=== PATIENT | male | born 1995 | race Caucasian/White ===

== ENCOUNTER 2018-05-27 17:25 | Outpatient (REF) | payer MEDICAID, SELFPAY ==
[2018-05-29 13:07] LABS: Chlamydia Result Negative; GC Result Negative; Specimen Description URINE
== END 2018-05-27 17:45 ==
LOC: NCHCN 17:25
PROVIDERS: Nurse Practitioner Family; PCP Specialist/Technologist Athletic Trainer; Visit Provider Nurse Practitioner Family
DX: R19.7 Diarrhea, unspecified (principal); Z11.3 Encounter for screening for infections with a predominantly sexual mode of transmission; Z83.79 Family history of other diseases of the digestive system; Z00.00 Encounter for general adult medical examination without abnormal findings
CPT/HCPCS: 80053; 86803; 87491; 87591; 85025

== ENCOUNTER 2018-06-22 14:44 | Emergency (ER) | payer MEDICAID, SELFPAY ==
[2018-06-22 15:02] VITALS: BP 123/67; PULSE 79; RESP 18; TEMP 37.7; O2SAT 100
[2018-06-22] MEDS: Dexamethasone 4 MG TAB 12 MG PO (15:25)
[2018-06-22 15:26] VITALS: TEMP 37.7
[2018-06-22] MEDS: Ketorolac 30 MG/ML VIAL IM (15:26)
--- NOTE | 2018-06-23 15:00 | ED.GENADUL_ITS ---
Discharge Plan Disposition Patient Disposition: HOME Condition: Good Discharge Details Chief Complaint: Sorethroat Clinical Impression: Strep throat Primary Care Provider: June Painting ED Provider: Donny Galdamez Home Meds and New Rx's Prescriptions: New amoxicillin 500 mg capsule 500 mg PO BID Qty: 20 RF: 0 Discharge Instructions Instructions: Pharyngitis (ED) Additional Instructions: Please take medications as directed. If you notice any worsening of your symptoms, or any new symptoms such as vomiting, diarrhea, fever, chills, shortness of breath, chest pain, numbness, weakness, or fainting , please return immediately to the emergency department for reevaluation. Please follow up with your primary care provider as soon as possible for reassessment and reevaluatio n. As always, it was a pleasure participating in your medical care today. Referrals: June Painting [Primary Care Provider] - Discharge Data Discharge Date/Time-TO BE ENTERED AT DEPARTURE: 06/22/18 15:55 Medical Decision Making This is a pleasant 23-year-old male who presents with signs and symptoms consistent clinically with strep throat. Strep test is positive. He shows no signs or symptoms consistent with bacterial tracheitis, meningitis, sepsis or other severe infection. No evidence of peritonsillar abscess. With reassuring vital signs patient will be prescribed amoxicillin discharged home with close follow-up. I have extensively reviewed the treatment plan and discharge instructions with the patient. I have addressed all patient concerns at this time. The patient was made aware of what symptoms to monitor for that would warrant a return to the emergency department. Discussed the plan with the patient, they demonstrate verbal understanding and agreement with our assessment and plan at this time. HPI General Date/Time Provider Initiated Documentation: 06/22/18 15:13 . HPI Narrative: This is a 23-year-old male with no past medical history who presents today for evaluation of sore throat for the last 1-2 days with occasional chills. He is able to eat and drink well. He denies any headache or neck pain. He denies any cough. He does admit to other sick contacts with similar symptoms. He denies any nausea vomiting or diarrhea. He is not taking any medications to improve his symptoms. He denies any aggravating or relieving factors. He has no other complaints or modifying factors at this time. Related Data Home Medications Medication Instructions Recorded Confirmed amoxicillin 500 mg PO BID #20 cap 06/22/18 Previous Rx's Medication Instructions Recorded amoxicillin 500 mg PO BID #20 cap 06/22/18 Allergies Allergy/AdvReac Type Severity Reaction Status Date / Time No Known Allergies Allergy Unverified 06/22/18 15:07 General Stated Complaint: Sorethroat SUDHAKAR: 3 Review of Systems Review of Systems All systems reviewed & are unremarkable except as noted in HPI and below PFSH Social History Smoking and Tabacco status: Current every day Exam Narrative Exam Narrative: 1.Const: Well-nourished, Well-developed, appearing stated age 2.Eyes: PERRL, no conjunctival injection, and symmetrical lids. 3.ENT: Atraumatic external nose and ears. Moist MM. Neck: Symmetric, trachea midline, No thyromegaly. Notable erythema in the posterior oropharynx. No tonsillar exudates, no tonsillar enlargement. Patient demonstrates good movement of cervical neck. There is no nuchal rigidity, no nuchal tenderness. Patient is able to flex the neck without any difficulty or significant pain. Negative Kernig's and Brudzinski sign. 4.CVS: +S1/S2, No murmurs or gallops. Peripheral pulses 2+ and equal in all extremities. Brisk capillary refill in all extremities. 5.RESP: Unlabored respiratory effort. Clear to auscultation bilaterally. No wheezes rales or rhonchi 6.GI: Soft, Nontender/Nondistended, No hepatosplenomegaly. No guarding or rebound. 7.MSK: Normocephalic/Atraumatic, Extremities w/o deformity or ttp No cyanosis or clubbing, Normal movement of all extremities 8.Skin: Warm, Dry. No rashes or lesions. 9.Neuro: program support specialist II-XII grossly intact. Sensation grossly intact, no focal n eurologic deficits. 10.Psych: (AAO) x3. Appropriate mood and affect Course Vital Signs Temperature 37.7 C H 06/22/18 15:02 Pulse 79 06/22/18 15:02 Respiratory Rate 18 06/22/18 15:02 Blood Pressure 123/67 06/22/18 15:02 Pulse Oximetry 100 06/22/18 15:02 Temperature 37.7 C H 06/22/18 15:26 Temperature Source Temporal Artery Scan 06/22/18 15:02 Pulse 79 06/22/18 15:02 Respiratory Rate 18 06/22/18 15:02 Respiratory Effort Non-Labored 06/22/18 15:06 Blood Pressure 123/67 06/22/18 15:02 Blood Pressure Position Sitting 06/22/18 15:02 Pulse Oximetry 100 06/22/18 15:02 Oxygen Delivery Method Room Air 06/22/18 15:02 Oxygen Flow Rate 0 06/22/18 15:02 Pain Level 4 06/22/18 15:55 Lab/Test Results Lab/Test Results: POC Strep Test-MARLENA(Rapid) Start: 06/22/18 15:18 Freq: .Rapid Strep Test Status: Discharge Protocol: Document 06/22/18 15:29 SGL (Rec: 06/22/18 15:29 SGL [id number]) Strep test-MARLENA(Rapid)-POC POC-Strep test-MARLENA (Rapid) Positive POC-Strep test-MARLENA (Rapid) Positive
== END 2018-06-22 15:55 | disposition home or self-care (01) ==
PROVIDERS: Emergency Provider Student in an Organized Health Care Education/Training Program; PCP Nurse Practitioner Family
DX: J02.0 Streptococcal pharyngitis (principal); F17.210 Nicotine dependence, cigarettes, uncomplicated
CPT/HCPCS: 87880; 96372; 99284; J1885; J8540

== ENCOUNTER 2018-11-11 07:43 | Emergency (ER) | payer MEDICAID, SELFPAY ==
[2018-11-11 07:51] VITALS: BP 122/73; PULSE 70; RESP 16; TEMP 37.1; O2SAT 99
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
[2018-11-11] MEDS: Balanced Salt Solution 15 ML BTL OP (08:13)
[2018-11-11] MEDS: Erythromycin Ophth Oint 3.5 GM TUBE OP (08:13)
[2018-11-11] MEDS: Tetracaine 0.5% 4 ML BTL OP (08:14)
[2018-11-11] MEDS: Fluorescein STRIPS 100/BOX 1 MG OP (08:14)
== END 2018-11-11 08:52 | disposition home or self-care (01) ==
PROVIDERS: Emergency Provider Nurse Practitioner Family; PCP Nurse Practitioner Family
DX: S05.02XA Injury of conjunctiva and corneal abrasion without foreign body, left eye, initial encounter (principal); W50.0XXA Accidental hit or strike by another person, initial encounter
CPT/HCPCS: 99283